=== PATIENT | female | born 1965 | race African-American/Black ===

== ENCOUNTER 2017-04-20 09:52 | Emergency (ER) | payer BC ==
[~2017-04-20] VITALS: Ht 152.4 cm; Wt 69.0 kg
[~2017-04-20 09:52] MED LIST: AMLO2.5T45 PO; OMEP20CA10 PO
[2017-04-20 10:29] VITALS: BP 124/68
[2017-04-20] MEDS ORDERED: ACETAMINOPHEN 500MG TABLET PO ONE (12:15)
[2017-04-20] MEDS ORDERED: ACETAMINOPHEN 500MG TABLET PO NR (13:30)
== END 2017-04-20 15:22 | disposition home or self-care (01) ==
LOC: ER 11:30
DX: S82.841A Displaced bimalleolar fracture of right lower leg, initial encounter for closed fracture (principal); S82.831A Other fracture of upper and lower end of right fibula, initial encounter for closed fracture; I10 Essential (primary) hypertension; Y93.51 Activity, roller skating (inline) and skateboarding; V00.121A Fall from non-in-line roller-skates, initial encounter; Y92.838 Other recreation area as the place of occurrence of the external cause
CPT/HCPCS: 73590; 73600; 73620; 99284

== ENCOUNTER 2024-03-20 19:08 | Emergency (ER) | payer BC ==
[~2024-03-20] VITALS: Ht 162.6 cm; Wt 69.0 kg
[~2024-03-20 19:08] MED LIST changes: -OMEP20CA10 PO; +OMEP20CA14 PO
[2024-03-20 19:11] VITALS: BP 108/60; PULSE 72; RESP 18; TEMP 98.4; O2SAT 100
== END 2024-03-20 20:31 | disposition home or self-care (01) ==
LOC: ER 19:08
DX: F10.129 Alcohol abuse with intoxication, unspecified (principal); Y90.9 Presence of alcohol in blood, level not specified
CPT/HCPCS: 99283

== ENCOUNTER 2024-12-09 11:40 | Emergency (ER) | payer MEDICAID, OTHER ==
[~2024-12-09] VITALS: Ht 152.4 cm; Wt 70.0 kg
[2024-12-09 11:51] VITALS: O2SAT 97
[2024-12-09 11:53] VITALS: BP 141/75; PULSE 97; RESP 16; TEMP 36.8; O2SAT 100
== END 2024-12-09 13:33 | disposition home or self-care (01) ==
LOC: ER 11:40
DX: L72.3 Sebaceous cyst (principal); I10 Essential (primary) hypertension; Z98.890 Other specified postprocedural states; Z90.710 Acquired absence of both cervix and uterus
CPT/HCPCS: 99282